=== PATIENT | male | born 1960 | race Two or more races ===

== ENCOUNTER 2021-11-03 08:47 | Outpatient (CLI) | payer OTHER | END 2021-11-03 08:52 | disposition home or self-care (01) | LOC: PPH VACUNA 08:47 | PROVIDERS: ATTEND Emergency Medicine Pediatric Emergency Medicine | DX: Z23 Encounter for immunization (principal) ==

== ENCOUNTER 2023-02-22 11:30 | Inpatient (IN) | payer OTHER ==
[~2023-02-22] VITALS: Ht 170.2 cm; Wt 49.9 kg
[2023-02-22] MEDS ORDERED: LANTUS SOL100 UNIT/1 (12:21)
[2023-02-22 17:50] LABS: HEMATOCRIT 41.3 % (39.0-48.0); HEMOGLOBIN 14.1 g/dL (13-16.00); MEAN CELL VOLUME 88.2 fL (80.0-100.00); MEAN CORPUSCULAR HEMOGLOBIN 30.1 pg (27.00-32.0); MEAN CORPUSCULAR HGB CONC 34.1 g/dl (32.0-36.0); PLATELET COUNT 303 K/uL (150-450); RED BLOOD COUNT 4.69 M/uL (4.00-6.00); RED CELL DISTRIBUTION WIDTH 12.8 % (11.5-14.5)
[2023-02-22 18:03] LABS: CALCIUM 10.7 mg/dL (8.5-10.1); CREATININE SERUM 1.29 mg/dL (0.70-1.30); GFR 56.62; POTASSIUM 4.38 mEq/L (3.5-5.1)
[2023-02-22 20:12] LABS: PARTIAL THROMBOPLASTIN TIME 26.5 SECONDS (22.0-34.0); PROTHROMBIN TIME 10.5 SECONDS (9.0-11.5)
[2023-02-22 20:16] LABS: ALBUMIN 3.8 gm/dL (3.4-5.0); BILIRUBIN TOTAL 0.38 mg/dL (0.3-1.2); CALCIUM 10.5 mg/dL (8.5-10.1); CREATININE SERUM 1.26 mg/dL (0.70-1.30); GFR 58.18; GLOBULINA 4.8 G/DL (2.4-3.5); POTASSIUM 4.07 mEq/L (3.5-5.1); TOTAL PROTEIN 8.6 gm/dL (6.4-8.2)
[2023-02-24 02:24] LABS: URINE APPEARANCE Clear; URINE BILIRRUBIN Negative (NEGATIVE); URINE BLOOD Negative; URINE COLOR Yellow; URINE LEUKOCYTE Negative; URINE NITRATE Negative; URINE PROTEIN Negative (NEGATIVE); URINE UROBILINOGEN 0.2 E.U./dl
[2023-02-24 02:32] LABS: URINE BACTERIA 2.5 uL (0.0-1933); URINE EPITHELIAL CELLS 0.6 uL (0.0-38.8); URINE GLUCOSE >=1000 MG/DL (NEGATIVE); URINE RBC 0.1 uL (0.0-20.8); URINE WBC 0 uL (0.0-23.2)
[2023-02-24 06:59] LABS: CHOL HDL RATIO 3.6 (0-5.0); TSH 2.01 uIU/mL (0.358-3.74)
[2023-02-27 07:17] LABS: ALBUMIN 2.7 gm/dL (3.4-5.0); BILIRUBIN TOTAL 0.29 mg/dL (0.3-1.2); CALCIUM 8.9 mg/dL (8.5-10.1); CREATININE SERUM 0.84 mg/dL (0.70-1.30); GFR 92.89; GLOBULINA 3.5 G/DL (2.4-3.5); MAGNESIUM 1.5 mg/dL (1.8-2.4); PHOSPHOROUS 2.5 mg/dL (2.5-4.9); POTASSIUM 3.68 mEq/L (3.5-5.1); TOTAL PROTEIN 6.2 gm/dL (6.4-8.2)
[2023-02-27 15:12] LABS: HEMATOCRIT 33.8 % (39.0-48.0); HEMOGLOBIN 11.6 g/dL (13-16.00); MEAN CORPUSCULAR HEMOGLOBIN 29.8 pg (27.00-32.0); MEAN CORPUSCULAR HGB CONC 34.3 g/dl (32.0-36.0); PLATELET COUNT 200 K/uL (150-450); RED BLOOD COUNT 3.88 M/uL (4.00-6.00); RED CELL DISTRIBUTION WIDTH 12.4 % (11.5-14.5)
[2023-02-27 17:11] LABS: URINE APPEARANCE Clear; URINE BILIRRUBIN Negative (NEGATIVE); URINE BLOOD Negative; URINE COLOR Yellow; URINE LEUKOCYTE Negative; URINE NITRATE Negative; URINE PROTEIN Negative (NEGATIVE)
[2023-02-27 17:14] LABS: URINE BACTERIA 7.5 uL (0.0-1933)
[2023-02-27 17:16] LABS: URINE EPITHELIAL CELLS 0.1 uL (0.0-38.8); URINE GLUCOSE >=1000 MG/DL (NEGATIVE); URINE RBC 0.4 uL (0.0-20.8); URINE WBC 1.5 uL (0.0-23.2)
== END 2023-03-01 16:09 | disposition home or self-care (01) | DRG 65 ==
LOC: ER 11:30 → MEDJ 02-23 19:51
PROVIDERS: General Practice; Internal Medicine Nephrology; ADMIT Internal Medicine; ATTEND Internal Medicine
PROC: BW28ZZZ Computerized Tomography (CT Scan) of Head (ICD-10-PCS; principal; 2023-02-22)
PROC: B030Y0Z Magnetic Resonance Imaging (MRI) of Brain using Other Contrast, Unenhanced and Enhanced (ICD-10-PCS; 2023-02-22)
PROC: B246ZZZ Ultrasonography of Right and Left Heart (ICD-10-PCS; 2023-02-23)
PROC: B343ZZ3 Ultrasonography of Right Common Carotid Artery, Intravascular (ICD-10-PCS; 2023-02-23)
PROC: 4A12X4Z Monitoring of Cardiac Electrical Activity, External Approach (ICD-10-PCS; 2023-02-23)
PROC: BW3FYZZ Magnetic Resonance Imaging (MRI) of Neck using Other Contrast (ICD-10-PCS; 2023-02-24)
DX: I63.232 Cerebral infarction due to unspecified occlusion or stenosis of left carotid arteries (principal); E87.1 Hypo-osmolality and hyponatremia; N17.8 Other acute kidney failure; G81.91 Hemiplegia, unspecified affecting right dominant side; I10 Essential (primary) hypertension; E11.9 Type 2 diabetes mellitus without complications; Z79.4 Long term (current) use of insulin; J11.1 Influenza due to unidentified influenza virus with other respiratory manifestations
CPT/HCPCS: 70547; 70552